=== PATIENT | male | born 1970 | race Caucasian/White ===

== ENCOUNTER 2018-05-24 13:33 | Emergency (ER) | payer SELFPAY ==
[2018-05-24 15:14] LABS: BASOPHILS # (AUTO) 0.1 10^3/uL (0.0-0.1); BASOPHILS % (AUTO) 1.3 %; EOSINOPHILS # (AUTO) 0.2 10^3/uL (0.0-0.7); EOSINOPHILS % (AUTO) 2.1 %; HGB - HEMOGLOBIN 16.7 g/dL (14.0-18.0); LYMPHOCYTES # (AUTO) 3.2 10^3/uL (1.5-3.5); LYMPHOCYTES % (AUTO) 31.3 %; MEAN CORPUSCULAR HEMOGLOBIN 30.5 pg (27.0-31.0); MEAN CORPUSCULAR HGB CONC 34.4 g/dL (32.0-36.0); MEAN CORPUSCULAR VOLUME 88.7 fL (80.0-94.0); MEAN PLATELET VOLUME 7.9 fL (7.4-11.4); MONOCYTES # (AUTO) 0.6 10^3/uL (0.0-1.0); MONOCYTES % (AUTO) 5.5 %; NEUTROPHILS # (AUTO) 6.1 10^3/uL (1.5-6.6); NEUTROPHILS % (AUTO) 59.8 %; PLT - PLATELET COUNT 227 10^3/uL (130-450); RED BLOOD COUNT 5.49 10^6/uL (4.70-6.10); RED CELL DISTRIBUTION WIDTH 12.9 % (12.0-15.0); WHITE BLOOD COUNT 10.3 x10^3/uL (4.8-10.8)
[2018-05-24 15:20] LABS: ALBUMIN/GLOBULIN RATIO 1.1 (1.0-2.2); BILIRUBIN,TOTAL 0.4 mg/dL (0.2-1.0); CREATININE 0.7 mg/dL (0.6-1.2); TOTAL PROTEIN 7.5 g/dL (6.7-8.2)
--- NOTE | 2018-05-24 16:53 | ED Physician Documentation ---
History of Present Illness - Stated complaint Stated Complaint: FATIGUE/WEAKNESS - Chief complaint Chief Complaint: Cardiac - History obtained from History obtained from: Patient - History of Present Illness Timing: How many weeks ago (2) - Additonal information Additional information: The patient is a 47-year-old male who complains of fatigue for the past 2 weeks. He denies any other specific symptoms. He denies fever, headache, sore throat, cough, shortness of breath, chest pain, vomiting, or dysuria. He has a history of coronary artery disease with [place] in 2014, with coronary stent placement. He is concerned that his fatigue may represent another cardiac event. He takes a baby aspirin daily, but no other medication. He quit smoking cigarettes in 2013 after his heart attack. Review of Systems Constitutional: reports: Fatigue. denies: Fever, Myalgias Eyes: denies: Irritation Ears: denies: Tinnitus/ringing Nose: denies: Congestion Throat: denies: Sore throat Cardiac: denies: Chest pain / pressure, Palpitations Respiratory: denies: Dyspnea, Cough GI: denies: Abdominal Pain, Vomiting, Diarrhea : denies: Dysuria Skin: denies: Rash Musculoskeletal: denies: Back pain, Extremity swelling Neurologic: denies: Focal weakness, Numbness, Altered mental status, Headache PD PAST MEDICAL HISTORY - Past Medical History Past Medical History: Yes Cardiovascular: Hypertension, High cholesterol, [place] - Past Surgical History Past Surgical History: Yes Cardiovascular: Coronary stent - Allergies Allergies/Adverse Reactions: Allergies Allergy/AdvReac Type Severity Reaction Status Date / Time No Known Drug Allergies Allergy Verified 05/24/18 14:25 - Social History Does the pt smoke?: No Smoking Status: Former smoker Does the pt drink ETOH?: No Does the pt have substance abuse?: No - Immunizations Immunizations are current?: No - POLST Patient has POLST: No PD ED PE NORMAL - Vitals Vital signs reviewed: Yes (hypertensive) - General General: Alert and oriented X 3, Well developed/nourished - HEENT HEENT: Atraumatic, PERRL, EOMI, Pharynx benign - Neck Neck: Supple, no meningeal sign, No adenopathy, No JVD - Cardiac Cardiac: RRR - Respiratory Respiratory: No respiratory distress, Clear bilaterally - Abdomen Abdomen: Soft, Non tender - Back Back: No CVA TTP - Derm Derm: No rash - Extremities Extremities: No edema, No calf tenderness / cord - Neuro Neuro: Alert and oriented X 3, No motor deficit, No sensory deficit, Normal speech Results - Vitals Vitals: Oxygen O2 Source Room air - EKG (time done) 14:29 Rate: Rate (enter#) (66) Rhythm: NSR [place]: Normal Intervals: Normal [place] Ischemia: Q waves (in III and aVF, consistent with old inferior [place].) Compare to prior EKG: Old EKG unavailable Computer interpretation: Agree with computer - Labs Labs: Laboratory Tests 05/24/18 05/24/18 05/24/18 15:00 15:00 15:00 WBC 10.3 RBC 5.49 Hgb 16.7 Hct 48.7 MCV 88.7 MCH 30.5 MCHC 34.4 RDW 12.9 Plt Count 227 MPV 7.9 Neut # (Auto) 6.1 Lymph # (Auto) 3.2 A[place] # (Auto) 0.6 Eos # (Auto) 0.2 Baso # (Auto) 0.1 Absolute Nucleated RBC 0.01 Nucleated RBC % 0.1 Sodium 134 L Potassium 3.7 Chloride 100 L Carbon Dioxide 25 Anion Gap 9.0 BUN 12 Creatinine 0.7 Estimated GFR (MDRD) 120 Glucose 102 H Calcium 9.0 Total Bilirubin 0.4 AST 19 ALT 27 Alkaline Phosphatase 83 Troponin I < 0.04 Total Protein 7.5 Albumin 4.0 Globulin 3.5 Albumin/Globulin Ratio 1.1 Lipase 28 TSH 05/24/18 15:00 WBC RBC Hgb Hct MCV MCH MCHC RDW Plt Count MPV Neut # (Auto) Lymph # (Auto) [place] # (Auto) Eos # (Auto) Baso # (Auto) Absolute Nucleated RBC Nucleated RBC % Sodium Potassium Chloride Carbon Dioxide Anion Gap BUN Creatinine Estimated GFR (MDRD) Glucose Calcium Total Bilirubin AST ALT Alkaline Phosphatase Troponin I Total Protein Albumin Globulin Albumin/Globulin Ratio Lipase TSH 4.68 PD MEDICAL DECISION MAKING - ED course Complexity details: reviewed results, re-evaluated patient, considered differential, d/w patient ED course: The underlying cause of the patient's ongoing fatigue is uncertain. His lab results reveal a normal CBC, and essentially normal chemistry panel and troponin. Hypothyroidism was considered, and his TSH is at the high-end of normal at 4.68, suggesting he may be borderline hypothyroid. Viral syndrome is certainly a consideration, but he does not have other symptoms of viral illness. He remained hypotensive while in the emergency department and that is initiated that needs outpatient follow-up. His presentation does not suggest acute myocardial ischemia. There was no specific treatment instituted based on his presentation today. I discussed with him the importance of outpatient follow-up with primary physician, as well as potentially worrisome signs or symptoms that should prompt reevaluation in the emergency department. Departure - Departure Disposition: 01 Home, Self Care Clinical Impression: Fatigue Qualifiers: Fatigue type: unspecified Qualified Code(s): R53.83 - Other fatigue Condition: Stable Instructions: ED Hypothyroidism Comments: Drink plenty of fluids. Follow-up with primary physician as soon as possible. Call to schedule an appointment. Return to the emergency department if you develop progressive fatigue, or othe rwise worsening symptoms. Discharge Date/Time: 05/24/18 17:07
[2018-05-24 17:07] VITALS: BP 160/96
== END 2018-05-24 17:07 | disposition home or self-care (01) ==
LOC: ED 13:33
DX: R53.83 Other fatigue (principal); I95.9 Hypotension, unspecified; I10 Essential (primary) hypertension; I25.2 Old myocardial infarction; E78.00 Pure hypercholesterolemia, unspecified; Z87.891 Personal history of nicotine dependence
CPT/HCPCS: 36415; 80053; 83690; 84443; 84484; 85025; 93005; 99283